=== PATIENT | female | born 1995 | race African-American/Black ===

== ENCOUNTER 2016-11-10 15:41 | Emergency (ER) | payer OTHER | END 2016-11-10 16:08 | disposition left against medical advice (07) | LOC: ED 15:41 | DX: Z53.21 Procedure and treatment not carried out due to patient leaving prior to being seen by health care provider (principal) ==

== ENCOUNTER 2017-07-12 15:47 | Emergency (ER) | payer MEDICAID ==
[~2017-07-12] VITALS: Ht 165.1 cm; Wt 48.1 kg
[2017-07-12 15:52] VITALS: BP 126/81
== END 2017-07-12 17:00 | disposition left against medical advice (07) ==
LOC: ED 15:47
DX: Z53.21 Procedure and treatment not carried out due to patient leaving prior to being seen by health care provider (principal)

== ENCOUNTER 2018-09-20 03:06 | Emergency (ER) | payer OTHER ==
[~2018-09-20] VITALS: Ht 165.1 cm; Wt 54.0 kg
[2018-09-20 03:12] VITALS: Ht 165.1 cm; Wt 54.0 kg
[2018-09-20 04:23] VITALS: BP 117/58
== END 2018-09-20 04:43 | disposition home or self-care (01) ==
LOC: ED 03:06
DX: K21.9 Gastro-esophageal reflux disease without esophagitis (principal); F41.9 Anxiety disorder, unspecified; F43.0 Acute stress reaction

== ENCOUNTER 2018-12-21 23:08 | Emergency (ER) | payer OTHER | END 2018-12-21 23:46 | disposition left against medical advice (07) | LOC: ED 23:08 | DX: Z53.21 Procedure and treatment not carried out due to patient leaving prior to being seen by health care provider (principal) ==

== ENCOUNTER 2019-01-18 14:38 | Emergency (ER) | payer OTHER ==
[~2019-01-18] VITALS: Ht 165.1 cm; Wt 49.9 kg
[2019-01-18 14:44] VITALS: Ht 165.1 cm; Wt 49.9 kg
[2019-01-18 17:46] LABS: BASOPHIL % 0.3 % (0-2)
[2019-01-18 17:56] LABS: CALCIUM 9.7 mg/dL (8.5-10.1); CARBON DIOXIDE 28.4 mmol/L (21-32); CHLORIDE SERUM 103 mmol/L (98-107); CREATININE SERUM 0.7 mg/dL (0.6-1.0); GFR1 > 60 mL/min; GLUCOSE SERUM 116 mg/dL (74-106); PLATELET COUNT 540 x10^3mcL (130-400); POTASSIUM SERUM 3.9 mmol/L (3.5-5.1); RED CELL DISTRIBUTION WIDTH 15.9 % (11.5-14.5); SODIUM SERUM 139 mmol/L (136-145)
[2019-01-18 18:07] LABS: ALKALINE PHOSPHATASE 75 U/L (46-116); ALT/SGPT 35 U/L (14-59); AMYLASE 87 U/L (25-115); AST/SGOT 14 U/L (15-37); BILIRUBIN TOTAL 0.3 mg/dL (0.20-1.00); LIPASE 135 IU/L (73-393); TOTAL PROTEIN, SERUM 8.1 g/dL (6.4-8.2)
[2019-01-18 22:50] VITALS: BP 133/85
== END 2019-01-18 22:50 | disposition home or self-care (01) ==
LOC: ED 14:38
PROVIDERS: Specialist
DX: O20.8 Other hemorrhage in early pregnancy (principal); Z3A.01 Less than 8 weeks gestation of pregnancy
CPT/HCPCS: 36415